=== PATIENT | female | born 2000 | race African-American/Black ===

== ENCOUNTER 2022-07-25 15:45 | Emergency (ER) | payer OTHER, SELFPAY ==
[2022-07-25 15:51] VITALS: BP 126/62; PULSE 106; RESP 16; TEMP 37.7; O2SAT 99
--- NOTE | 2022-07-25 16:01 | ED.URI ---
HPI - URI/Sore Throat General Chief Complaint: Upper Respiratory Infection Stated Complaint: Sore Throat/Nausea Time Seen by Provider: 07/25/22 16:01 History of Present Illness HPI Narrative: patient presents with sore throat that started this am. no trouble swallowing and no drooling. Related Data Allergies Allergy/AdvReac Type Severity Reaction Status Date / Time No Known Allergies Allergy Unverified 07/25/22 15:54 Review of Systems Review of Systems: CONSTITUTIONAL: Denies fever, chills, or sweats. EYES: Denies visual changes, redness, or discharge. ENT: Denies rhinorrhea, congestion, sore throat, or otalgia. CARDIOVASCULAR: Denies chest pain, palpitations, or edema. RESPIRATORY: Denies cough or dyspnea. GASTROINTESTINAL: Denies abdominal pain, nausea, vomiting, or diarrhea. GENITOURINARY: Denies dysuria or hematuria. SKIN: Denies rash or itching. MUSCULOSKELETAL: Denies back pain, joint pain, or myalgia. NEUROLOGIC: Denies headache, numbness, or weakness. PSYCHIATRIC: Denies anxiety or depression. PMFSH Comments At time of signature, agree with nursing past medical, surgical, social and family history. There is no relevant family history pertinent to the presenting complaint Exam Narrative: GENERAL: Well-appearing, well-nourished, and in no acute distress. HEAD: Normocephalic, atraumatic. EYES: PERRLA and EOMI. ENT: Nares clear, no rhinorrhea or epistaxis. Mucous membranes moist. moderate pharyngeal erythema with exudate no trismus no drooling and able to open mouth fully NECK: Supple. CHEST: Clear to auscultation. No respiratory distress. HEART: Regular rate and rhythm. No murmur heard. Normal peripheral pulses. ABDOMEN: Soft, nontender, nondistended, normal active bowel sounds. EXTREMITIES: Normal range of motion. No edema. SKIN: Warm, dry, no rash. NEURO: No focal deficits. Alert and oriented x3. Ang Coma Scale Eye Opening: Spontaneous 4 Ang Coma Scale Motor: Obeys Commands 6 Ang Coma Scale Verbal: Oriented 5 Ang Coma Scale Total 15 Course Course Level of Care: Express Care Visit Vital Signs Vital signs: Vital Signs Temperature 37.7 C H 07/25/22 15:51 Pulse Rate 106 H 07/25/22 15:51 Respiratory Rate 16 07/25/22 15:51 Blood Pressure 126/62 07/25/22 15:51 Pulse Oximetry 99 07/25/22 15:51 Oxygen Delivery Room Air 07/25/22 15:51 Temperature 37.7 C H 07/25/22 15:51 Pulse Rate 106 H 07/25/22 15:51 Respiratory Rate 16 07/25/22 15:51 Blood Pressure 126/62 07/25/22 15:51 Pulse Oximetry 99 07/25/22 15:51 Oxygen Delivery Room Air 07/25/22 15:51 MDM - URI/Sore Throat Lab Data Labs: Strep Screen Positive Group A Strep *(Reference Range: Negative)* Discharge Plan Discharge Clinical Impression: Pharyngitis, acute Patient Disposition: Home, Self-Care Condition: Stable Instructions: Antibiotic Form, Strep Throat (DC) Additional Instructions: Increase fluids especially juices and water [id number] cough and cold medicine of your choice for your symptoms Salt water gargles, throat lozenges or throat sprays as desired change toothbrush in 3-5 days Antibiotic as directed--finished the medication It may take the antibiotic 2-3 days to control the fever/symptoms -If you have any worsening of symptoms or any other concerns please go to the ED immediately. Prescriptions: New amoxicillin 500 mg capsule 500 mg PO Q12H 10 Days Qty: 20 0RF Follow-up/Referrals: Lane,Amina Stevenson APN [Primary Care Provider] - Stand Alone Forms: Work/School Release IP
== END 2022-07-25 16:15 | disposition home or self-care (01) ==
PROVIDERS: Emergency Provider Nurse Practitioner Family; PCP Nurse Practitioner Family
DX: J02.9 Acute pharyngitis, unspecified (principal)
CPT/HCPCS: 87880; 99203; G0463

== ENCOUNTER 2022-12-20 13:09 | Emergency (ER) | payer OTHER, SELFPAY ==
[2022-12-20 13:12] VITALS: BP 127/61; PULSE 74; RESP 20; TEMP 36.7; O2SAT 100
--- NOTE | 2022-12-20 13:21 | ED.GENADULT ---
HPI - General Adult General Chief complaint: Upper Respiratory Infection Stated complaint: strep or thrush or both History of Present Illness HPI narrative: patient recently finished an antibiotic and now has white coating to tongue and sides of mouth as well as a sore throat. patient denies a sore throat as present. reports hx of thrush and symptoms were the same. patient is 20 weeks with no related problems no vaginal discharge no concern for std no urinaryproblems Related Data Allergies Allergy/AdvReac Type Severity Reaction Status Date / Time No Known Allergies Allergy Unverified 07/25/22 15:54 Review of Systems Review of Systems: CONSTITUTIONAL: Denies fever, chills, or sweats. EYES: Denies visual changes, redness, or discharge. ENT: Denies rhinorrhea, congestion, sore throat, or otalgia. CARDIOVASCULAR: Denies chest pain, palpitations, or edema. RESPIRATORY: Denies cough or dyspnea. GASTROINTESTINAL: Denies abdominal pain, nausea, vomiting, or diarrhea. GENITOURINARY: Denies dysuria or hematuria. SKIN: Denies rash or itching. MUSCULOSKELETAL: Denies back pain, joint pain, or myalgia. NEUROLOGIC: Denies headache, numbness, or weakness. PSYCHIATRIC: Denies anxiety or depression. PMFSH Comments At time of signature, agree with nursing past medical, surgical, social and family history. There is no relevant family history pertinent to the presenting complaint Exam Narrative: GENERAL: Well-appearing, well-nourished, and in no acute distress. HEAD: Normocephalic, atraumatic. EYES: PERRLA and EOMI. ENT: Nares clear, no rhinorrhea or epistaxis. Mucous membranes moist.white patches to tongue and side of mouth unable to scrape off with tongue blade. no pharyngeal erythema NECK: Supple. CHEST: Clear to auscultation. No respiratory distress. HEART: Regular rate and rhythm. No murmur heard. Normal peripheral pulses. ABDOMEN: Soft, nontender, nondistended, normal active bowel sounds. EXTREMITIES: Normal range of motion. No edema. SKIN: Warm, dry, no rash. NEURO: No focal deficits. Alert and oriented x3. [place] Coma Scale Eye Opening: Spontaneous 4 [place] Coma Scale Motor: Obeys Commands 6 [place] Coma Scale Verbal: Oriented 5 [place] Coma Scale Total 15 Course Course Level of Care: Express Care Visit Vital Signs Vital signs: Vital Signs Temperature 36.7 C 12/20/22 13:12 Pulse Rate 74 12/20/22 13:12 Respiratory Rate 20 12/20/22 13:12 Blood Pressure 127/61 12/20/22 13:12 Pulse Oximetry 100 12/20/22 13:12 Oxygen Delivery Room Air 12/20/22 13:12 Temperature 36.7 C 12/20/22 13:12 Pulse Rate 74 12/20/22 13:12 Respiratory Rate 20 12/20/22 13:12 Blood Pressure 127/61 12/20/22 13:12 Pulse Oximetry 100 12/20/22 13:12 Oxygen Delivery Room Air 12/20/22 13:12 Medical Decision Making Vital Signs Vital Signs: Vital Signs Temperature 36.7 C 12/20/22 13:12 Pulse Rate 74 12/20/22 13:12 Respiratory Rate 20 12/20/22 13:12 Blood Pressure 127/61 12/20/22 13:12 Pulse Oximetry 100 12/20/22 13:12 Oxygen Delivery Room Air 12/20/22 13:12 Temperature 36.7 C 12/20/22 13:12 Pulse Rate 74 12/20/22 13:12 Respiratory Rate 20 12/20/22 13:12 Blood Pressure 127/61 12/20/22 13:12 Pulse Oximetry 100 12/20/22 13:12 Oxygen Delivery Room Air 12/20/22 13:12 Discharge Plan Discharge Clinical Impression: Oral thrush Patient Disposition: Home, Self-Care Condition: Stable Instructions: Oral Candidiasis (ED) Additional Instructions: nystatin as prescribed follow up with OB information architect as planned Prescriptions: New nystatin 100,000 unit/mL suspension 1 ml buccal QID 7 Days Qty: 28 0RF Rx Instructions: administer 1/2 of dose in each side of the mouth Follow-up/Referrals: Lane,Amina Stevenson APN [Primary Care Provider] -
== END 2022-12-20 13:31 | disposition home or self-care (01) ==
PROVIDERS: Emergency Provider Nurse Practitioner Family; PCP Nurse Practitioner Family
DX: O99.891 Other specified diseases and conditions complicating pregnancy (principal); Z3A.20 20 weeks gestation of pregnancy; B37.0 Candidal stomatitis
CPT/HCPCS: 99213; G0463